=== PATIENT | male | born 1955 ===

== ENCOUNTER 2017-06-26 15:16 | Emergency (ER) | payer MEDICAID ==
[2017-06-26 15:40] VITALS: BMI 187.1
[2017-06-26] MEDS ORDERED: Sodium Chloride 0.9% 1,000 ML IV STA ×2 (15:51→17:38)
[2017-06-26 16:22] LABS: BASO # 0.02 K/mm3 (0.0-2.0); BASO % 0.3 % (0.0-3.0); EOS % 0.5 % (1.5-5.0); GRAN # 5.48 (1.4-6.5); GRAN % 71.9 % (50.0-68.0); HEMATOCRIT 35.9 % (42.0-52.0); LYMPH # 1.7 (1.2-3.4); LYMPH % 22.6 % (22.0-35.0); MEAN CELL VOLUME 86.9 fl (80.0-105.0); MEAN CORPUSCULAR HEMOGLOBIN 30.3 pg (25.0-35.0); MEAN CORPUSCULAR HGB CONC 34.8 g/dl (31.0-37.0); MEAN PLATELET VOLUME 10.9 fl (7.0-11.0); MONO # 0.4 (0.1-0.6); MONO % 4.7 % (1.0-6.0); RED CELL DISTRIBUTION WIDTH 12.9 % (11.5-14.5); WHITE BLOOD COUNT 7.6 10^3/ul (4.5-11.0)
--- NOTE | 2017-06-26 16:25 | CT ---
PROCEDURE: CT HEAD WITHOUT CONTRAST. HISTORY: dizziness COMPARISON: None available. TECHNIQUE: Axial computed tomography images were obtained through the head/brain without intravenous contrast. Radiation dose: Total exam DLP = 887 mGy-cm. This CT exam was performed using one or more of the following dose reduction techniques: Automated exposure control, adjustment of the mA and/or kV according to patient size, and/or use of iterative reconstruction technique. FINDINGS: HEMORRHAGE: No intracranial hemorrhage. BRAIN: There is a 4 mm calcification in the right frontal lobe. Mild atrophy is seen. No acute findings VENTRICLES: Unremarkable. No hydrocephalus. CALVARIUM: Unremarkable. PARANASAL SINUSES: Unremarkable as visualized. No significant inflammatory changes. MASTOID AIR CELLS: Unremarkable as visualized. No inflammatory changes. OTHER FINDINGS: None. IMPRESSION: No acute intracranial finding
[2017-06-26 16:30] LABS: INR 1.01 (0.93-1.08); PARTIAL THROMBOPLASTIN TIME 26.3 Seconds (25.1-36.5)
[2017-06-26 16:39] LABS: TROPONIN I < 0.01 ng/mL
[2017-06-26 17:31] LABS: BLOOD UREA NITROGEN 29 mg/dL (7-21); CALCIUM 9.9 mg/dL (8.4-10.5); CARBON DIOXIDE 26 mmol/L (21-33); CHLORIDE 99 mmol/L (98-107); GFR AFRICAN-AMERICAN > 60; POTASSIUM 4.7 mmol/L (3.6-5.0); SODIUM 134 mmol/L (132-148)
[2017-06-26 17:32] LABS: ALB/GLOB RATIO 1.2 (1.1-1.8); ALKALINE PHOSPHATASE 89 U/L (38-126); ALT/SGPT 23 U/L (7-56); AST/SGOT 29 U/L (17-59); BILIRUBIN,TOTAL 0.4 mg/dL (0.2-1.3); TOTAL PROTEIN 7.8 g/dL (5.8-8.3)
[2017-06-26 17:35] LABS: GLUCOSE,RANDOM 500 mg/dL (70-110)
[2017-06-26] MEDS ORDERED: Insulin Reg-LOW-Coverage IV ONE (17:44)
--- NOTE | 2017-06-26 17:44 | ED PDOC ---
Arrival/HPI - General Chief Complaint: Dizziness/Lightheaded Time Seen by Provider: 06/26/17 15:28 Historian: Patient - History of Present Illness Narrative History of Present Illness (Text): 06/26/17 17:20 A 62 year old male, whose past medical history includes hypertension, hyperlipidemia, diabetes, and CAD (PCI?), presents to the emergency department for light headedness that began 1 week ago. The patient states that his light headedness worsens when he stands up from a sitting position. He denies any syncope collapses, LOC, no fluid loses, and denies melena. The patient does note that his finger stick levels have been high noted in the 400's. The patient denies any other acute symptoms, chest pain, headaches, or any other complaints at this time. Time/Duration: 1 week Symptom Onset: Sudden Symptom Course: Unchanged Activities at Onset: Light Context: Sitting, Standing, Home Past Medical History - Provider Review Nursing Documentation Reviewed: Yes - Infectious Disease Hx of Infectious Diseases: None - Cardiac Hx Hypertension: Yes - Endocrine/Metabolic Hx Diabetes Mellitus Type 2: Yes - Psychiatric Hx Substance Use: No Family/Social History - Physician Review Nursing Documentation Reviewed: Yes Family/Social History: No Known Family HX Smoking Status: Never Smoked Hx Alcohol Use: No Hx Substance Use: No Allergies/Home Meds Allergies/Adverse Reactions: Allergies No Known Allergies Allergy (Verified 06/26/17 15:36) Home Medications: Home Meds Medication Instructions Recorded Confirmed Aspirin [Ecotrin] 81 mg PO DAILY 06/26/17 06/26/17 Atorvastatin [Lipitor] 10 mg PO QPM 06/26/17 06/26/17 Clopidogrel [Plavix] 75 mg PO DAILY 06/26/17 06/26/17 Insulin Glargine,Hum.rec.anlog 28 units SC QPM 06/26/17 06/26/17 [Toujeo Solostar] Lisinopril [Zestril] 10 mg PO DAILY 06/26/17 06/26/17 Metoprolol Tartrate [Lopressor] 50 mg PO DAILY 06/26/17 06/26/17 Review of Systems - Physician Review All systems were reviewed & negative as marked: Yes - Review of Systems Cardiovascular: absent: Chest Pain Neurological: Other (light headed). absent: Headache Physical Exam - Physical Exam Narrative Physical Exam (Text): 06/26/17 17:47 HINTS exam negative. Vital Signs Reviewed: Yes Vital Signs Temp Pulse Resp BP Pulse Ox 06/26/17 17:26 86 18 183/91 H 100 06/26/17 15:47 98.6 F 89 20 183/93 H 100 Temperature: Afebrile Blood Pressure: Hypertensive Pulse: Regular Respiratory Rate: Normal Appearance: Positive for: Well-Appearing, Non-Toxic, Comfortable Pain Distress: None Mental Status: Positive for: Alert and Oriented X 3 Finger Stick Blood Glucose: 402 - Systems Exam Head: Present: Atraumatic, Normocephalic Pupils: Present: PERRL Extroacular Muscles: Present: EOMI Conjunctiva: Present: Normal Mouth: Present: Moist Mucous Membranes Neck: Present: Normal Range of Motion Respiratory/Chest: Present: Clear to Auscultation, Good Air Exchange. No: Respiratory Distress, Accessory Muscle Use Cardiovascular: Present: Regular Rate and Rhythm, Normal S1, S2. No: Murmurs Abdomen: Present: Normal Bowel Sounds. No: Tenderness, Distention, Peritoneal Signs Back: Present: Normal Inspection Upper Extremity: Present: Normal Inspection. No: Cyanosis, Edema Lower Extremity: Present: Normal Inspection. No: Edema Neurological: Present: GCS=15, CN II-XII Intact, Speech Normal Skin: Present: Warm, Dry, Normal Color. No: Rashes Psychiatric: Present: Alert, Oriented x 3, Normal Insight, Normal Concentration Medical Decision Making ED Course and Treatment: 06/26/17 17:48 Impression: Differential Diagnosis included but are not limited to: Plan: -- EKG -- Chest X-ray -- Humulin, Antivert, IV Fluids -- Urinalysis -- HINTS exam -- Reassess and disposition Progress Notes: 06/26/17 19:[address] : no m/s/b. sugars have decremented w/ ivf. pt normally takes 28 units qHS , and will be advised to increment his insulin up to 33 units q hs and to increase his insulin by 2 units nightly every 2 days until he reaches a target blood sugars in the 100's-200' and to follow up at his regular clinic [facility]. . - Lab Interpretations Lab Results: 06/26/17 16:05 06/26/17 16:05 Lab Results 06/26/17 16:05: Sodium 134, Potassium 4.7, Chloride 99, Carbon Dioxide 26, Anion Gap 14, BUN 29 H, Creatinine 1.4, Est GFR ( Amer) > 60, Est GFR ( Non-Af Amer) 51, Random Glucose 500 H*, Calcium 9.9, Total Bilirubin 0.4, AST 29 , ALT 23, Alkaline Phosphatase 89, Lactate Dehydrogenase 421, Total Creatine Kinase 97, Troponin I < 0.01, NT-Pro-B Natriuret Pep 222, Total Protein 7.8, Albumin 4.2, Globulin 3.5, Albumin/Globulin Ratio 1.2 06/26/17 16:05: PT 11.0, INR 1.01, APTT 26.3 06/26/17 16:05: WBC 7.6, RBC 4.13, Hgb 12.5 L, Hct 35.9 L, MCV 86.9, MCH 30.3, MCHC 34.8, RDW 12.9, Plt Count 181, MPV 10.9, Gran % 71.9 H, Lymph % (Auto) 22.6 , [place] % (Auto) 4.7, Eos % (Auto) 0.5 L, Baso % (Auto) 0.3, Gran # 5.48, Lymph # 1.7, [place] # 0.4, Eos # 0.0, Baso # 0.02 06/26/17 15:49: Urine Color Yellow, Urine Appearance Sl cloudy, Urine pH 8.0, Ur Specific [place] 1.015, Urine Protein 100 H, Urine Glucose (UA) >=1000, Urine Ketones Negative, Urine Blood Trace-lysed H, Urine Nitrate Negative, Urine Bilirubin Negative, Urine Urobilinogen 0.2, Ur Leukocyte Esterase Negative , Urine RBC 1 - 3, Urine WBC 15 - 20, Ur Epithelial Cells 6 - 8, Urine Bacteria Few - RAD Interpretation Radiology Orders: 06/26/17 15:47 CHEST TWO VIEWS (PA/LAT) [RAD] Stat 06/26/17 15:50 HEAD W/O CONTRAST [CT] Stat - Medication Orders Current Medication Orders: Discontinued Medications Sodium Chloride (Sodium Chloride 0.9%) 1,000 mls @ 999 mls/hr IV .Q1H1M STA Stop: 06/26/17 16:51 Last Admin: 06/26/17 16:46 Dose: 999 mls/hr eMAR Start Stop Document 06/26/17 16:46 SRE (Rec: 06/26/17 16:47 SRE [id number]) Intravenous Solution Start Date 06/26/17 Start Time 16:00 End Date 06/26/17 End time 17:00 Total Infusion Time 60 Sodium Chloride (Sodium Chloride 0.9%) 1,000 mls @ 999 mls/hr IV .Q1H1M STA Stop: 06/26/17 18:38 Last Admin: 06/26/17 18:17 Dose: 999 mls/hr eMAR Start Stop Document 06/26/17 18:17 SRE (Rec: 06/26/17 18:17 SRE [id number]) Intravenous Solution Start Date 06/26/17 Start Time 18:17 End Date 06/26/17 End time 19:20 Total Infusion Time 63 Insulin Human Regular (Humulin R) 3 units IV ONCE ONE PRN Reason: Protocol Stop: 06/26/17 18:01 Last Admin: 06/26/17 18:16 Dose: Meclizine HCl (Antivert) 25 mg PO STAT STA Stop: 06/26/17 15:51 Last Admin: 06/26/17 16:20 Dose: 25 mg - Scribe Statement The provider has reviewed the documentation as recorded by the Esthela Jung Provider Scribe Attestation: All medical record entries made by the Scribpanda were at my direction and personally dictated by me. I have reviewed the chart and agree that the record accurately reflects my personal performance of the history, physical exam, medical decision making, and the department course for this patient. I have also personally directed, reviewed, and agree with the discharge instructions and disposition. Disposition/Present on Arrival - Present on Arrival Any Indicators Present on Arrival: No History of DVT/PE: No History of Uncontrolled Diabetes: No Urinary Catheter: No History of Decub. Ulcer: No History Surgical Site Infection Following: None - Disposition Have Diagnosis and Disposition been Completed?: Yes Diagnosis: Hyperglycemia, Peripheral vertigo involving left ear Disposition: HOME/ ROUTINE Disposition Time: 19:29 Patient Plan: Discharge Condition: GOOD Discharge Instructions (ExitCare): Hyperosmolar Hyperglycemic State (ED), Vertigo (ED) Print Language: CYMRO Additional Instructions: Por favor monitor das azucares en das valentina por monitorando das dieta, evite corbohydratos y come krysta dieta fundado en ensalado con carne kierra (fish and chikcen) y ejercicio 3-4 x/week . INCREMENTA DAS INSULINA DE 28UNITS EN LA NOCHE A 33 UNITS IN LA NOCHE PARA TARGETAR UN SPECTRO ENTRE 100'S TO BAJO 200'S. SI ESTA CAMBIO NO PRODUZAC ESTA CAMBNIO INCREMENTA DAS INSULINA CADA 2 DEL TORO POR 2 UNITOS HASTA ENCONTRANDO DAS TARGETADO SPECTRO. Prescriptions: Meclizine [Meclizine*] 25 mg PO Q6 PRN #42 tab PRN Reason: Dizziness Referrals: PCP,NO [Primary Care Provider] - Follow up with primary Forms: [employer] (Greenlandic)
[2017-06-26] MEDS ORDERED: Insulin Regular 1 UNITS/0.01 ML ML IV ONE (18:00)
[2017-06-26 18:46] LABS: URINE BILIRUBIN NEGATIVE (NEGATIVE); URINE BLOOD TRACE-LYSED (NEGATIVE); URINE GLUCOSE (UA) >=1000 mg/dL (NEGATIVE); URINE KETONE NEGATIVE (NEGATIVE); URINE LEUKOCYTE ESTERASE NEGATIVE Leu/uL (NEGATIVE); URINE PROTEIN 100 mg/dL (<30 mg/dL); URINE UROBILINOGEN 0.2 E.U./dL (<1 E.U./dL)
[2017-06-26 18:59] LABS: URINE APPEARANCE SL CLOUDY (CLEAR); URINE COLOR YELLOW (YELLOW)
[2017-06-26 19:07] LABS: URINE WBC 15 - 20 /hpf (0-6)
[2017-06-26 19:08] LABS: URINE BACTERIA FEW (NEG)
[2017-06-26 19:53] VITALS: BP 170/82; PULSE 76; RESP 17; TEMP 98.7; O2SAT 99
--- NOTE | 2017-06-27 08:45 | RAD ---
HISTORY: dizziness COMPARISON: No prior. TECHNIQUE: Chest PA and lateral FINDINGS: LUNGS: No active pulmonary disease. PLEURA: No significant pleural effusion identified. No pneumothorax apparent. CARDIOVASCULAR: Normal. OSSEOUS STRUCTURES: No significant abnormalities. VISUALIZED UPPER ABDOMEN: Normal. OTHER FINDINGS: None. IMPRESSION: No active disease.
--- NOTE | 2017-06-27 17:36 | CARD ---
APPROVED REPORT EKG Measurement Heart [id number] <Conclusion> Normal sinus rhythm Possible Anterior infarct, age undetermined Abnormal ECG
== END 2017-06-26 19:53 | disposition home or self-care (01) ==
LOC: ED 15:16
DX: E11.65 Type 2 diabetes mellitus with hyperglycemia (principal); H81.392 Other peripheral vertigo, left ear; I10 Essential (primary) hypertension
CPT/HCPCS: 70450; 71020; 80053; 81001; 82550; 83615; 83880; 84484; 85025; 85610; 85730; 87086; 93005; 96360; 96361; 99285; J7040

== ENCOUNTER 2017-07-21 14:07 | Emergency (ER) | payer MEDICAID ==
[2017-07-21 14:07] VITALS: BMI 187.1
[2017-07-21 14:29] VITALS: TEMP 98.5
--- NOTE | 2017-07-21 15:35 | ED PDOC ---
Arrival/HPI - General Chief Complaint: Lower Extremity Problem/Injury Time Seen by Provider: 07/21/17 15:29 Historian: Patient - History of Present Illness Narrative History of Present Illness (Text): 07/21/17 15:32 This 62 yo male with pmh htn, dm, gout, presents to this ED c/o left foot pain x 4 days. Patient admits similar symptoms in the past. Patient denies trauma, or other somatic complains. Time/Duration: Other (4 days) Quality: Aching Context: Home Past Medical History - Provider Review Nursing Documentation Reviewed: Yes - Infectious Disease Hx of Infectious Diseases: None - Cardiac Hx Cardiac Disorders: Yes Hx Hypertension: Yes - Pulmonary Hx Respiratory Disorders: No - Neurological Hx Neurological Disorder: No - HEENT Hx HEENT Disorder: No - Renal Hx Renal Disorder: No - Endocrine/Metabolic Hx Endocrine Disorders: Yes Hx Diabetes Mellitus Type 2: Yes - Hematological/Oncological Hx Blood Disorders: No - Integumentary Hx Dermatological Disorder: No - Musculoskeletal/Rheumatological Hx Musculoskeletal Disorders: No - Gastrointestinal Hx Gastrointestinal Disorders: No - Genitourinary/Gynecological Hx Genitourinary Disorders: No - Psychiatric Hx Psychophysiologic Disorder: No Hx Substance Use: No - Surgical History Hx Coronary Stent: Yes Family/Social History - Physician Review Nursing Documentation Reviewed: Yes Family/Social History: Other (noncontributory) Smoking Status: Never Smoked Hx Alcohol Use: No Hx Substance Use: No Allergies/Home Meds Allergies/Adverse Reactions: Allergies No Known Allergies Allergy (Verified 07/21/17 14:21) Home Medications: Home Meds Medication Instructions Recorded Confirmed Aspirin [Ecotrin] 81 mg PO DAILY 06/26/17 07/21/17 Atorvastatin [Lipitor] 10 mg PO QPM 06/26/17 07/21/17 Clopidogrel [Plavix] 75 mg PO DAILY 06/26/17 07/21/17 Insulin Glargine,Hum.rec.anlog 28 units SC QPM 06/26/17 07/21/17 [Toujeo Solostar] Lisinopril [Zestril] 10 mg PO DAILY 06/26/17 07/21/17 Metoprolol Tartrate [Lopressor] 50 mg PO DAILY 06/26/17 07/21/17 Review of Systems - Review of Systems Constitutional: Normal. absent: Fatigue, Weight Change, Fevers Eyes: Normal ENT: Normal Respiratory: Normal Cardiovascular: Normal Gastrointestinal: Normal Genitourinary Male: Normal Musculoskeletal: Other (foot pain) Skin: Normal Neurological: Normal Endocrine: Normal Hemo/Lymphatic: Normal Psychiatric: Normal Physical Exam Vital Signs Temp Pulse Resp BP Pulse Ox 07/21/17 14:23 98.5 F 68 16 126/65 96 Temperature: Afebrile Blood Pressure: Normal Pulse: Regular Respiratory Rate: Normal Appearance: Positive for: Well-Appearing, Non-Toxic, Comfortable Pain Distress: None Mental Status: Positive for: Alert and Oriented X 3 - Systems Exam Head: Present: Atraumatic, Normocephalic Mouth: Present: Moist Mucous Membranes Neck: Present: Normal Range of Motion Upper Extremity: Present: Normal Inspection, Normal ROM Lower Extremity: Present: NORMAL PULSES, Normal ROM, Temperature Abnormalties, Neurovascularly Intact, Capillary Refill < 2 s, Other ((+) left 1st MPJ area is mild swollen, erythema, tender, and warmth to touch. It resembles Podagra.). No: Edema, CALF TENDERNESS, Erythema Neurological: Present: GCS=15, CN II-XII Intact, Speech Normal Skin: Present: Warm, Dry, Normal Color. No: Rashes Psychiatric: Present: Alert, Oriented x 3, Normal Insight, Normal Concentration Medical Decision Making ED Course and Treatment: 07/21/17 17:21 Re-evaluation. Patient feels better. Discussed results and plan with patient who expresses understanding. All questions answered and there is agreement with the plan to discharge home with instructions. Patient stable for discharge. Return if symptoms persist or worsen. I reviewed the risk of using Decadron with patient which includes AVN, osteoporosis, diabetes, glaucoma, renal failure, liver failure, or worsen of rash. He understand s risk but he still requested to have Decadron Re-evaluation Time: 17:22 Reassessment Condition: Re-examined, Improved - Lab Interpretations Lab Results: Lab Results 07/21/17 16:04: Uric Acid 6.6 - RAD Interpretation Narrative RAD Interpretations (Text): 07/21/17 17:22 PROCEDURE: Radiographs of the left great toe. Clinical history: Neck pain TECHNIQUE:: AP radiograph of the left foot, with oblique and lateral view of the left great toe. COMPARISON: None. FINDINGS: BONES: Normal. No fracture. JOINTS: Normal. SOFT TISSUES: Normal. OTHER FINDINGS: Vascular calcifications. IMPRESSION: No significant or acute findings to account for/ related to the clinical presentation. Radiology Orders: 07/21/17 15:29 FOOT LEFT GREAT TOE ROUTINE [RAD] Stat - Medication Orders Current Medication Orders: Discontinued Medications Colchicine (Colocrys) 1.2 mg PO STAT STA Stop: 07/21/17 15:32 Last Admin: 07/21/17 16:36 Dose: 1.2 mg Dexamethasone (Decadron Inj) 10 mg IM STAT STA Stop: 07/21/17 15:33 Last Admin: 07/21/17 16:36 Dose: 10 mg IM Administration Charges Document 07/21/17 16:36 HI (Rec: 07/21/17 16:36 [place] [id number] Injection Site MAR Injection Site Left Deltoid Charges for Administration # of IM Administrations 1 Disposition/Present on Arrival - Present on Arrival Any Indicators Present on Arrival: No History of DVT/PE: No History of Uncontrolled Diabetes: Yes Urinary Catheter: No History of Decub. Ulcer: No History Surgical Site Infection Following: None - Disposition Have Diagnosis and Disposition been Completed?: Yes Diagnosis: Gout attack Disposition: HOME/ ROUTINE Disposition Time: 17:23 Patient Plan: Discharge Patient Problems: Current Active Problems Problem Status Onset Gout attack Acute Condition: GOOD Discharge Instructions (ExitCare): Gout (ED) Print Language: MALAYSIAN Additional Instructions: Llame a das podiatra para seguimientomedico en 2-3 ontiveros. Thrall las medicinas ganesh cuellar side indicatda. Applique compresiones abbott. Mantenga pie elevado, y evite caminar. Regrese a la emergencia si dolor empeora Prescriptions: Indomethacin [Indocin] 50 mg PO TID PRN #30 cap PRN Reason: Pain, Severe (8-10) Referrals: Hanane Nails DPM [Staff Provider] - Follow up with primary Forms: [employer] (Ivorian), WORK NOTE
--- NOTE | 2017-07-21 16:57 | RAD ---
PROCEDURE: Radiographs of the left great toe. Clinical history: Neck pain TECHNIQUE:: AP radiograph of the left foot, with oblique and lateral view of the left great toe. COMPARISON: None. FINDINGS: BONES: Normal. No fracture. JOINTS: Normal. SOFT TISSUES: Normal. OTHER FINDINGS: Vascular calcifications. IMPRESSION: No significant or acute findings to account for/ related to the clinical presentation.
[2017-07-21 21:50] VITALS: BP 127/70; PULSE 70; RESP 18; O2SAT 100
== END 2017-07-21 17:51 | disposition home or self-care (01) ==
LOC: ED 14:07
DX: M10.9 Gout, unspecified (principal); E11.9 Type 2 diabetes mellitus without complications; I10 Essential (primary) hypertension
CPT/HCPCS: 73660; 84550; 96372; 99284; J1100

== ENCOUNTER 2017-08-12 16:32 | Emergency (ER) | payer MEDICAID, OTHER ==
[2017-08-12 16:52] VITALS: BMI 27.4
[2017-08-12 17:01] VITALS: BP 168/79; PULSE 89; RESP 18; TEMP 98.9; O2SAT 95
--- NOTE | 2017-08-12 17:32 | ED PDOC ---
Arrival/HPI - General Chief Complaint: Med Refill Time Seen by Provider: 08/12/17 16:40 Historian: Patient EM Caveat: Language Barrier - History of Present Illness Narrative History of Present Illness (Text): 08/12/17 17:28 Pt is a 62 yo M who presents today for medication refill of Lisiopril, atorvastatin, metropolol, and clopidogrel. Pt only speaks Italian and has no medicaid or medicare. 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 Pt denies any complaints at this time including cp, sob, HUNTER, n/v/d or GIB. Translational services used to interpret Italian. Time/Duration: Prior to Arrival Symptom Onset: Other (no symptoms) Symptom Course: Unchanged Quality: Other (no pain) Severity Level: 1 Activities at Onset: Other (no symptoms) Context: Other (none) Past Medical History - Provider Review Nursing Documentation Reviewed: Yes - Travel History Have you recently traveled outside [place] w/in the past 3 mons?: No - Infectious Disease Hx of Infectious Diseases: None - Tetanus Immunization Tetanus Immunization: Unknown - Cardiac Hx Cardiac Disorders: Yes Hx Hypertension: Yes - Pulmonary Hx Respiratory Disorders: No - Neurological Hx Neurological Disorder: No - HEENT Hx HEENT Disorder: No - Renal Hx Renal Disorder: No - Endocrine/Metabolic Hx Endocrine Disorders: Yes Hx Diabetes Mellitus Type 2: Yes - Hematological/Oncological Hx Blood Disorders: No - Integumentary Hx Dermatological Disorder: No - Musculoskeletal/Rheumatological Hx Musculoskeletal Disorders: No - Gastrointestinal Hx Gastrointestinal Disorders: No - Genitourinary/Gynecological Hx Genitourinary Disorders: No - Psychiatric Hx Psychophysiologic Disorder: No Hx Substance Use: No - Surgical History Hx Coronary Stent: Yes - Anesthesia Hx Anesthesia: Yes Hx Anesthesia Reactions: No Hx Malignant Hyperthermia: No Family/Social History - Physician Review Nursing Documentation Reviewed: Yes Family/Social History: Unknown Family HX Smoking Status: Never Smoked Hx Alcohol Use: No Hx Substance Use: No Allergies/Home Meds Allergies/Adverse Reactions: Allergies No Known Allergies Allergy (Verified 07/21/17 14:21) Home Medications: Home Meds Medication Instructions Recorded Confirmed Aspirin [Ecotrin] 81 mg PO DAILY 06/26/17 08/12/17 Atorvastatin [Lipitor] 10 mg PO QPM 06/26/17 08/12/17 Clopidogrel [Plavix] 75 mg PO DAILY 06/26/17 08/12/17 Insulin Glargine,Hum.rec.anlog 30 units SC QPM 06/26/17 08/12/17 [Noahanton Carlottajluis] Lisinopril [Zestril] 10 mg PO DAILY 06/26/17 08/12/17 Metoprolol Tartrate [Lopressor] 50 mg PO DAILY 06/26/17 08/12/17 Review of Systems - Review of Systems Systems not reviewed;Unavailable: Language Barrier Constitutional: Normal Eyes: Normal ENT: Normal Respiratory: Normal Cardiovascular: Normal Gastrointestinal: Normal Genitourinary Male: Normal Musculoskeletal: Normal Skin: Normal Neurological: Normal Endocrine: Normal Hemo/Lymphatic: Normal Psychiatric: Normal Physical Exam Vital Signs Reviewed: Yes Vital Signs Temp Pulse Resp BP Pulse Ox 08/12/17 17:01 98.9 F 89 18 168/79 H 95 Temperature: Afebrile Blood Pressure: Normal Pulse: Regular Respiratory Rate: Normal Appearance: Positive for: Well-Appearing, Non-Toxic, Comfortable Pain Distress: None Mental Status: Positive for: Alert and Oriented X 3 - Systems Exam Head: Present: Atraumatic, Normocephalic Pupils: Present: PERRL Extroacular Muscles: Present: EOMI Conjunctiva: Present: Normal Mouth: Present: Moist Mucous Membranes Neck: Present: Normal Range of Motion Respiratory/Chest: Present: Clear to Auscultation, Good Air Exchange. No: Respiratory Distress, Accessory Muscle Use Cardiovascular: Present: Regular Rate and Rhythm, Normal S1, S2. No: Murmurs Abdomen: Present: Normal Bowel Sounds. No: Tenderness, Distention, Peritoneal Signs Back: Present: Normal Inspection Upper Extremity: Present: Normal Inspection. No: Cyanosis, Edema Lower Extremity: Present: Normal Inspection. No: Edema Neurological: Present: GCS=15, CN II-XII Intact, Speech Normal Skin: Present: Warm, Dry, Normal Color. No: Rashes Psychiatric: Present: Alert, Oriented x 3, Normal Insight, Normal Concentration Medical Decision Making ED Course and Treatment: 08/12/17 17:33 Impression Plan Refill on HTN medication Assess VS and Dispo home Progress Note: VSS, dispo home with refills for Atorvastatin and Lisinopril advised pt to follow up with [facility] Disposition/Present on Arrival - Present on Arrival Any Indicators Present on Arrival: No History of DVT/PE: No History of Uncontrolled Diabetes: Yes Urinary Catheter: No History of Decub. Ulcer: No History Surgical Site Infection Following: None - Disposition Have Diagnosis and Disposition been Completed?: No Diagnosis: Hypertension Disposition: HOME/ ROUTINE Disposition Time: 17:42 Patient Plan: Discharge Condition: GOOD Discharge Instructions (ExitCare): Hypertension (GEN) Print Language: FAROESE Additional Instructions: Please follow up with a primary care doctor or general office clerk as soon as possible for medication refill. If you experience chest pain, shortness of breath or headache, or any other pain , return to the emergency department for evaluation Prescriptions: Atorvastatin [Lipitor] 10 mg PO DIN 30 Days #30 tab Lisinopril [Zestril] 10 mg PO DAILY 30 Days #30 tablet Referrals: PCP,NO [Primary Care Provider] - Follow up with primary Forms: [employer] (Equ[place]an)
== END 2017-08-12 17:56 | disposition home or self-care (01) ==
LOC: ED 16:32
DX: I10 Essential (primary) hypertension (principal); E11.9 Type 2 diabetes mellitus without complications

== ENCOUNTER 2018-03-26 12:49 | Emergency (ER) | payer SELFPAY ==
[2018-03-26 12:50] VITALS: BMI 27.4
[2018-03-26 13:07] VITALS: TEMP 99.5; O2SAT 98
--- NOTE | 2018-03-26 15:43 | ED PDOC ---
Arrival/HPI - General Chief Complaint: Med Refill Time Seen by Provider: 03/26/18 14:40 Historian: Patient - History of Present Illness Narrative History of Present Illness (Text): 03/26/18 14:47 A 62 year old male, whose past medical history includes Insulin dependent diabetes and gout, presents to the emergency department with bilateral stocking glove distribution leg pain as well as right great toe mtcp pain sinc a week ago. Patient reports desire to refill indomethacin and his recent sugar level were in the 100s. Patient denies any effective foci or any other complaints. No PCP Time/Duration: 1 week Symptom Onset: Gradual Activities at Onset: Light Context: Home Past Medical History - Provider Review Nursing Documentation Reviewed: Yes - Infectious Disease Hx of Infectious Diseases: None - Tetanus Immunization Tetanus Immunization: Unknown - Cardiac Hx Cardiac Disorders: Yes Hx Hypertension: Yes - Pulmonary Hx Respiratory Disorders: No - Neurological Hx Neurological Disorder: No - HEENT Hx HEENT Disorder: No - Renal Hx Renal Disorder: No - Endocrine/Metabolic Hx Endocrine Disorders: Yes Hx Diabetes Mellitus Type 2: Yes - Hematological/Oncological Hx Blood Disorders: No - Integumentary Hx Dermatological Disorder: No - Musculoskeletal/Rheumatological Hx Musculoskeletal Disorders: No - Gastrointestinal Hx Gastrointestinal Disorders: No - Genitourinary/Gynecological Hx Genitourinary Disorders: No - Psychiatric Hx Psychophysiologic Disorder: No Hx Substance Use: No - Surgical History Hx Coronary Stent: Yes - Anesthesia Hx Anesthesia: Yes Hx Anesthesia Reactions: No Hx Malignant Hyperthermia: No Family/Social History - Physician Review Nursing Documentation Reviewed: Yes Family/Social History: Unknown Family HX Smoking Status: Never Smoked Hx Alcohol Use: No Hx Substance Use: No Allergies/Home Meds Allergies/Adverse Reactions: Allergies No Known Allergies Allergy (Verified 03/26/18 13:02) Home Medications: Home Meds Medication Instructions Recorded Confirmed Aspirin [Ecotrin] 81 mg PO DAILY 06/26/17 08/12/17 Atorvastatin [Lipitor] 10 mg PO QPM 06/26/17 08/12/17 Clopidogrel [Plavix] 75 mg PO DAILY 06/26/17 08/12/17 Insulin Glargine,Hum.rec.anlog 30 units SC QPM 06/26/17 08/12/17 [Toujeo Solostar] Lisinopril [Zestril] 10 mg PO DAILY 06/26/17 08/12/17 Metoprolol Tartrate [Lopressor] 50 mg PO DAILY 06/26/17 08/12/17 Review of Systems - Physician Review All systems were reviewed & negative as marked: Yes - Review of Systems Constitutional: absent: Other (Denies effective foci) Eyes: Normal ENT: Normal Respiratory: Normal Cardiovascular: Normal Gastrointestinal: Normal Genitourinary Male: Normal Musculoskeletal: Other (+bilateral leg pain) Skin: Normal Neurological: Normal Endocrine: Normal Hemo/Lymphatic: Normal Psychiatric: Normal Physical Exam Vital Signs Reviewed: Yes Vital Signs Temp Pulse Resp BP Pulse Ox 03/26/18 15:48 79 18 168/92 H 98 03/26/18 13:04 99.5 F 101 H 16 173/77 H 98 Temperature: Afebrile Blood Pressure: Hypertensive Pulse: Tachycardic Respiratory Rate: Normal Appearance: Positive for: Well-Appearing, Non-Toxic, Comfortable Pain Distress: None Mental Status: Positive for: Alert and Oriented X 3 - Systems Exam Head: Present: Atraumatic, Normocephalic Pupils: Present: PERRL Extroacular Muscles: Present: EOMI Conjunctiva: Present: Normal Mouth: Present: Moist Mucous Membranes Neck: Present: Normal Range of Motion Respiratory/Chest: Present: Clear to Auscultation, Good Air Exchange. No: Respiratory Distress, Accessory Muscle Use Cardiovascular: Present: Regular Rate and Rhythm, Normal S1, S2. No: Murmurs Abdomen: No: Tenderness, Distention, Peritoneal Signs Back: Present: Normal Inspection Upper Extremity: Present: Normal Inspection. No: Cyanosis, Edema Lower Extremity: Present: Other (no popliteal fossa fullness/calf ttp, rt great toe mtcp joint ttp ). No: Normal Inspection (+pain in bilateral lower extremities), CALF TENDERNESS, NORMAL PULSES (+1 distal pedal pulses), Cyanosis , Normal ROM, Jack's Sign, Tenderness (no posterior calf tenderness), Swelling , Erythema, Deformity, Temperature Abnormalties, Neurovascularly Intact, Capillary Refill < 2 s Neurological: Present: GCS=15, CN II-XII Intact, Speech Normal, Motor Func Grossly Intact, Normal Sensory Function, Normal Cerebellar Funct, Norm Deep Tendon Reflexes, Gait Normal, Memory Normal, Normal 2Pt Descrimination Skin: No: Other (no cellulitis) Psychiatric: Present: Alert, Oriented x 3, Normal Insight, Normal Concentration , Normal Affect, Normal Mood Medical Decision Making ED Course and Treatment: 03/26/18 14:56 Impression: 62 year old male presenting to the emergency department complaining of bilateral leg pain. Plan: -- Pepcid -- Neurontin -- Indocin -- Reassess and disposition Prior Visits: Notes and results from previous visits were reviewed. Progress Notes: 03/26/18 14:56 Patient will be discharged home with same treatment and be advise to follow up with primary care doctor. - Medication Orders Current Medication Orders: Discontinued Medications Famotidine (Pepcid) 20 mg PO STAT STA Stop: 03/26/18 14:41 Last Admin: 03/26/18 14:50 Dose: 20 mg Gabapentin (Neurontin) 100 mg PO ONCE ONE PRN Reason: Protocol Stop: 03/26/18 14:42 Last Admin: 03/26/18 14:50 Dose: 100 mg Indomethacin (Indocin) 50 mg PO STAT STA Stop: 03/26/18 14:41 Last Admin: 03/26/18 15:03 Dose: 50 mg MAR Pain Assessment Document 03/26/18 15:03 GMD (Rec: 03/26/18 15:03 GMD [id number]) Pain Reassessment Is this a pain reassessment? No - Scribe Statement The provider has reviewed the documentation as recorded by the Scribpanda Caballero All medical record entries made by the Scribe were at my direction and personally dictated by me. I have reviewed the chart and agree that the record accurately reflects my personal performance of the history, physical exam, medical decision making, and the department course for this patient. I have also personally directed, reviewed, and agree with the discharge instructions and disposition. Disposition/Present on Arrival - Present on Arrival Any Indicators Present on Arrival: Yes History of DVT/PE: No History of Uncontrolled Diabetes: Yes Urinary Catheter: No History of Decub. Ulcer: No History Surgical Site Infection Following: None - Disposition Have Diagnosis and Disposition been Completed?: Yes Diagnosis: Diabetic neuropathy, Gout Disposition: HOME/ ROUTINE Disposition Time: 15:50 Patient Plan: Discharge Condition: IMPROVED Discharge Instructions (ExitCare): Gout, Diabetic Neuropathy Print Language: ARMENIAN Additional Instructions: Monitor das dieta proximamente y la azucar en das valentina. Tratat un curso del gabapenin, y tu peude incrementa depsaciomente cada semana de 100mg mary veces en el elizabeth, a 200 mg veces en el elizabeth en el juvencio semana . Sigue con das doctor regular para incrementar . Regrese si das simtomas es no ameliorado. Prescriptions: Famotidine [Pepcid] 20 mg PO BID PRN #20 tab PRN Reason: Dyspepsia Gabapentin [Neurontin] 100 mg PO TID PRN #90 capsule PRN Reason: Pain, Moderate (4-7) Indomethacin 25 mg PO Q8 PRN #30 capsule PRN Reason: Pain, Moderate (4-7) Insulin Glargine,Hum.rec.anlog [Lantus Solostar] 30 unit SQ HS 30 Days insuln.pen Referrals: [facility] at [facility] [place] [Outside] - Follow up with primary Forms: [email or web address] (Occitan)
[2018-03-26 15:51] VITALS: BP 168/92; PULSE 79; RESP 18
== END 2018-03-26 16:51 | disposition home or self-care (01) ==
LOC: ED 12:49
DX: E11.40 Type 2 diabetes mellitus with diabetic neuropathy, unspecified (principal); M10.9 Gout, unspecified; Z79.4 Long term (current) use of insulin